=== PATIENT | male | born 1955 | race Caucasian/White ===

== ENCOUNTER 2017-10-17 08:24 | Emergency (ER) | payer OTHER ==
[~2017-10-17] VITALS: Ht 180.3 cm; Wt 79.5 kg
[2017-10-17 08:35] VITALS: TEMP 36.5; Ht 180.3 cm; Wt 79.5 kg
[2017-10-17] MEDS ORDERED: MoRPHine SULFATE 10 MG/ML CARP/VIAL IV STA (08:43)
[2017-10-17] MEDS ORDERED: SODIUM CHLORIDE 0.9% 1000ML 1,000 ML IV STA (08:43)
[2017-10-17] MEDS ORDERED: ONDANSETRON INJ 2 MG/ML 2 ML VIAL IV STA (08:43)
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
[2017-10-17 09:12] LABS: ISTAT CREATININE 0.9 mg/dl (0.6-1.3); ISTAT HEMOGLOBIN 13.6 g/dl (14.0-18.0); ISTAT IONIZED CALCIUM 1.14 mmol/l (1.12-1.32)
[2017-10-17 09:17] LABS: BASO % 0.1 %; BASO ABS # 0.02 K/uL (0-0.2); COMPLETE YES; EOS % 1.2 %; HEMATOCRIT 39.4 % (42-52); LYMPH ABS # 1.09 K/uL (1.2-3.4); MEAN CELL VOLUME 95.4 fL (80-100); MEAN CORPUSCULAR HEMOGLOBIN 33.9 pg (25-34); MEAN CORPUSCULAR HGB CONC 35.5 g/dl (32-36); MEAN PLATELET VOLUME 11.9 fL (7.4-10.4); NEUT % 83.7 %; PLATELET COUNT 158 K/uL (130-400); RED BLOOD COUNT 4.13 M/uL (4.7-6.1); WHITE BLOOD COUNT 13.61 K/uL (4.8-10.8)
[2017-10-17 09:28] LABS: INR 1.1 (0.9-1.1); PARTIAL THROMBOPLASTIN RATIO 0.9; PROTHROMBIN TIME (PATIENT) 11.4 SECONDS (9.0-12.0)
[2017-10-17 09:33] LABS: BUN/CREATININE RATIO 21.5 (10-20); CALCIUM 9.6 mg/dl (8.5-10.1); CREATININE 0.99 mg/dl (0.60-1.40); POTASSIUM 4.2 mmol/L (3.5-5.1)
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
[2017-10-17] MEDS ORDERED: CARV12.5 PO (10:15)
[2017-10-17] MEDS ORDERED: SITA50TA9 PO (10:15)
[2017-10-17] MEDS ORDERED: RANO1000 PO (10:15)
[2017-10-17] MEDS ORDERED: RAMI10CA PO (10:15)
[2017-10-17] MEDS ORDERED: ASPI81TA28 PO (10:15)
[2017-10-17] MEDS ORDERED: CLOP1TAB15 PO (10:15)
[2017-10-17] MEDS ORDERED: TADA5TAB11 PO (10:15)
[2017-10-17] MEDS ORDERED: EPLE25TA3 PO (10:15)
[2017-10-17] MEDS: MoRPHine SULFATE 10 MG/ML CARP/VIAL IV PRN ×4 (10:27→12:21)
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
[2017-10-17 10:51] VITALS: O2SAT 97
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
[2017-10-17 12:17] VITALS: BP 110/70; PULSE 92; O2SAT 100
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
== END 2017-10-17 12:34 | disposition short-term general hospital (02) ==
LOC: C.EDB 08:27
DX: S22.43XA Multiple fractures of ribs, bilateral, initial encounter for closed fracture (principal); S27.2XXA Traumatic hemopneumothorax, initial encounter; S92.001A Unspecified fracture of right calcaneus, initial encounter for closed fracture; V47.5XXA Car driver injured in collision with fixed or stationary object in traffic accident, initial encounter; Y93.89 Activity, other specified; Y99.8 Other external cause status; I25.10 Atherosclerotic heart disease of native coronary artery without angina pectoris; E11.9 Type 2 diabetes mellitus without complications; I10 Essential (primary) hypertension; Z95.1 Presence of aortocoronary bypass graft; Z79.02 Long term (current) use of antithrombotics/antiplatelets; Z79.82 Long term (current) use of aspirin; Z79.899 Other long term (current) drug therapy